=== PATIENT | male | born 1960 | race Caucasian/White ===

== ENCOUNTER 2016-05-20 14:54 | Emergency (ER) | payer OTHER ==
[2016-05-20 15:25] VITALS: PULSE 96; RESP 16; TEMP 96.8; O2SAT 95
--- NOTE | 2016-05-20 16:03 | DX ---
Left 4th Finger, 4 Views History: Pain post trauma. Findings: There is a dorsolateral dislocation of the fourth PIP joint. No fracture is identified. The third finger looks normal. Impression: Fourth PIP joint dislocation.
--- NOTE | 2016-05-20 17:46 | DX ---
Left 4th finger - 3 views 17:29 Indication: Post reduction Comparison: Left fourth finger at 1546 p.m. Findings: The middle phalanx has been reduced into anatomic alignment. No fracture. Joint spaces pres erved. Minimal soft tissue swelling. Impression: Good anatomic reduction.
--- NOTE | 2016-05-20 17:47 | DX ---
Left Hip, 2 Views History: Fall on ice, left hip pain. Comparison: None. Findings: Lefthip demonstrates no evidence of fracture or dislocation. No evidence of significant degenerative changes, joint space narrowing, or osteophytes. No destructive osseous lesions. No evidence of pubic rami fractures. Sacroiliac joints appear symmetr ic. Bilateral partial sacralization of L5. Impression: 1. No evidence of hip fracture or dislocation. 2. No significant degenerative changes. 3. If there is persistent pain, consider additional CT or MRI imaging if clinically indicated.
--- NOTE | 2016-05-20 17:54 | UCPHY ---
H & P Time Seen by Provider: 05/20/16 16:04 Patient Type: New HPI/ROS: 56-year-old male presents complaining slipping on the ice at work now with pain in his left hip and a dislocated left ring finger. He did not his head he denies loss of consciousness he denies other injuries at present Review of systems As per HPI General no fever no chills no weakness HEENT no eye pain no eye discharge. No eye redness, no sore throat Respiratory no cough, no shortness of breath Cardiac no chest pain, no peripheral edema GI no abdominal pain, no diarrhea, no constipation, no nausea, no vomiting no flank pain, no hematuria, no dysuria Musculoskeletal no myalgias, positive joint pain Heme no easy bruising, no easy bleeding Endo no polyuria, no polydipsia Skin no rashes, no pruritus Neuro no syncope, no dizziness, no headaches Psych is no suicidal ideation, no homicidal ideation Past Medical/Surgical History: Noncontributory Social History: Denies alcohol or drug use Smoking Status: Never smoked Physical Exam: 56-year-old male alert and oriented no acute distress nontoxic appearance afebrile HEENT atraumatic normocephalic, extraocular muscles intact, anicteric Oropharynx negative for erythema negative exudate, tolerating her own secretions Neck supple no meningismus Lungs clear to auscultation bilaterally Heart regular rate and rhythm without murmur rub or gallop Abdomen nondistended normoactive bowel sounds soft nontender Back no CVA tenderness, no step-offs, no spinal tenderness Extremities no cyanosis clubbing or edema Except left hip tenderness to palpation, full range of motion, no ecchymosis Left hand-left ring finger with a swelling and dislocation at PIP, good capillary refill Neuro alert and oriented, no focal deficits Constitutional: Initial Vital Signs Temperature (C) 36 C 05/20/16 15:19 Heart Rate 96 05/20/16 15:19 Respiratory Rate 16 05/20/16 15:19 Blood Pressure 148/110 H 05/20/16 15:19 O2 Sat (%) 95 05/20/16 15:19 O2 Delivery Mode Room Air Allergies/Adverse Reactions: No Known Allergies Allergy (Verified 05/20/16 15:25) Home Medications: Medication Instructions Recorded NK [No Known Home Meds] 05/20/16 Medical Decision Making - Diagnostics Imaging: Initial hand x-ray positive for PIP dislocation left ring finger Postreduction x-ray-good reduction of PIP left ring finger Left hip Negative Procedures: Procedure-joint reduction-left PIP ring finger dislocation Digital block using 1% lidocaine combined with 0.25% bupivacaine without epinephrine Longitudinal traction, followed by mild hyper extension followed by pressure on the proximal aspect of the dislocation Patient tolerated procedure well PIP reduced ED Course/Re-evaluation: Patient seen and evaluated for left ring finger PIP dislocation and left hip contusion X-ray positive for PIP dislocation left ring finger Departure - Departure Disposition: Home, Routine, Self-Care Clinical Impression: Contusion of hip, left, Dislocation of proximal interphalangeal joint of left ring finger Clinical Impression: (Ruled Out): Dislocation of proximal interphalangeal joint of left index finger Condition: Good Instructions: Finger Dislocation (ED), Hip Contusion (ED) Additional Instructions: Follow up with hand surgery Referrals: NONE *PRIMARY CARE P,. [Primary Care Provider] - As per Instructions Luba Mas MD [Medical Doctor] - As per Instructions Stand Alone Forms: Work Excuse - PQRS PQRS Measurement: na
[2016-05-20 22:15] VITALS: BP 143/107
== END 2016-05-20 18:09 | disposition home or self-care (01) ==
LOC: CED 14:54
PROC: 0RSXXZZ Reposition Left Finger Phalangeal Joint, External Approach (ICD-10-PCS; principal; 2016-05-20)
DX: S63.285A Dislocation of proximal interphalangeal joint of left ring finger, initial encounter (principal); S70.02XA Contusion of left hip, initial encounter; W00.0XXA Fall on same level due to ice and snow, initial encounter; Y99.0 Civilian activity done for income or pay
CPT/HCPCS: 73140-PO; 73502-PO; G0463-PO